=== PATIENT | male | born 1980 | race Caucasian/White ===

== ENCOUNTER 2017-01-06 18:53 | Emergency (ER) | payer BC ==
[~2017-01-06] VITALS: Ht 182.9 cm; Wt 90.7 kg
[2017-01-06] MEDS ORDERED: GABAPENTI (19:12)
[2017-01-06] MEDS ORDERED: TRAZODONE (19:12)
[2017-01-06] MEDS ORDERED: PROZAC (19:12)
[2017-01-06] MEDS ORDERED: WELLBUTRIN (19:12)
--- NOTE | 2017-01-06 19:18 | NUR ---
DR. MELGOZA AT BEDSIDE FOR MSE.
[2017-01-06 19:51] VITALS: BP 135/84
--- NOTE | 2017-01-06 19:51 | NUR ---
Patient discharged to home in stable conditon. Written and verbal after care instructions given. Patient verbalizes understanding of instructions. PATIENT LEFT WITH STABLE GAIT.
== END 2017-01-06 19:52 | disposition home or self-care (01) ==
LOC: ER 18:54
DX: S00.03XA Contusion of scalp, initial encounter (principal); F32.9 Major depressive disorder, single episode, unspecified; F41.9 Anxiety disorder, unspecified; V43.52XA Car driver injured in collision with other type car in traffic accident, initial encounter; Y92.410 Unspecified street and highway as the place of occurrence of the external cause; Y93.89 Activity, other specified; Y99.8 Other external cause status
CPT/HCPCS: 99283; A4663